=== PATIENT | female | born 1965 | race Caucasian/White ===

== ENCOUNTER 2022-12-30 12:03 | Outpatient (CLI) | payer BC, SELFPAY | END 2022-12-30 12:04 | disposition home or self-care (01) | PROVIDERS: PCP Family Medicine; Visit Provider Family Medicine | DX: R60.9 Edema, unspecified (principal); M25.50 Pain in unspecified joint | CPT/HCPCS: 80048; 84443; 85025; 86039; 86431 ==

== ENCOUNTER 2023-03-15 16:59 | Outpatient (CLI) | payer BC, SELFPAY | END 2023-03-15 17:00 | disposition home or self-care (01) | LOC: FBOREF 17:00 | PROVIDERS: PCP Family Medicine; Visit Provider Family Medicine | DX: R60.9 Edema, unspecified (principal) | CPT/HCPCS: 84132 ==

== ENCOUNTER 2023-08-30 08:39 | Outpatient (CLI) | payer BC, SELFPAY | END 2023-08-30 08:40 | disposition home or self-care (01) | LOC: FBOREF 08:39 | PROVIDERS: PCP Family Medicine; Visit Provider Family Medicine | DX: R53.83 Other fatigue (principal) | CPT/HCPCS: 84443 ==

== ENCOUNTER 2023-09-06 16:48 | Outpatient (CLI) | payer BC, SELFPAY ==
--- NOTE | 2023-09-06 17:00 | US_ITS ---
Patient: ABI BAKER Facility:?[facility] Patient ID:?[id number] Site Patient ID:?[id number]. Site :?[id number] Study:?US-Thyroid -09/06/2023 5:22:45 PM Ordering Physician:KAITY Final Report: INDICATION: autoimmune thyroiditis COMPARISON: none TECHNIQUE: Godoy scale and color Doppler images were acquired of the thyroid gland. FINDINGS: Mildly heterogeneous thyroid echotexture noted. The right lobe measures 5.3 x 1.1 x 1.4 cm and the left lobe measures 5.1 x 1.2 x 1.5 cm in size. There are no suspicious masses or nodules. Isthmus measures 1 millimeter. The color Doppler images demonstrate increased vascularity. There is no evidence of cervical lymphadenopathy or parathyroid mass. IMPRESSION: Mildly heterogeneous thyroid echotexture with diffusely increased vascularity. No suspicious nodule. Dictated by Isai Jiménez MD @ 09/07/2023 8:17:27 AM Signed by:?Isai Jiménez MD @09/07/2023 8:17:27 AM (Electronic Signature)
== END 2023-09-06 16:49 | disposition home or self-care (01) ==
LOC: US 16:49
PROVIDERS: PCP Family Medicine; Visit Provider Otolaryngology
DX: E06.3 Autoimmune thyroiditis (principal)
CPT/HCPCS: 76536

== ENCOUNTER 2023-11-17 09:38 | Outpatient (CLI) | payer BC, SELFPAY | END 2023-11-17 09:39 | disposition home or self-care (01) | PROVIDERS: PCP Family Medicine; Visit Provider Family Medicine | DX: R06.02 Shortness of breath (principal); E03.9 Hypothyroidism, unspecified; E66.9 Obesity, unspecified; R60.9 Edema, unspecified | CPT/HCPCS: 80048; 83880; 85025; 85379 ==

== ENCOUNTER 2023-11-23 13:25 | Outpatient (CLI) | payer BC, SELFPAY ==
--- NOTE | 2023-11-23 13:45 | CRLHL7_ITS ---
For Patients: As a result of the Century Cures Act, medical imaging exams and procedure reports are released immediately into your electronic medical record. You may view this report before your referring provider. If you have questions, please contact your health care provider. INDICATION: Edema TECHNIQUE: : Ultrasound venous duplex lower extremity bilateral. Compression venous exam was performed using philippe-scale, color Doppler, and spectral Doppler imaging. COMPARISON: None FINDINGS: Sonographic imaging demonstrates the common femoral, deep femoral, superficial femoral, popliteal, posterior tibial and greater saphenous veins to be fully compressible with normal color Doppler blood flow in both lower extremities. IMPRESSION: Normal bilateral lower extremity venous ultrasound, no sign of deep venous thrombosis. Dictated by Kalpesh Vogel MD @ 11/24/2023 8:49:40 AM (Electronically Signed)
== END 2023-11-23 13:26 | disposition home or self-care (01) ==
PROVIDERS: PCP Family Medicine; Visit Provider Family Medicine
DX: R60.9 Edema, unspecified (principal); R06.02 Shortness of breath; R79.89 Other specified abnormal findings of blood chemistry
CPT/HCPCS: 93970

== ENCOUNTER 2023-12-08 13:38 | Outpatient (CLI) | payer BC, SELFPAY | END 2023-12-08 13:39 | disposition home or self-care (01) | LOC: RAD 13:39 | PROVIDERS: PCP Family Medicine; Visit Provider Family Medicine | DX: R06.02 Shortness of breath (principal); R06.00 Dyspnea, unspecified | CPT/HCPCS: 93306 ==

== ENCOUNTER 2024-01-11 10:30 | Outpatient (CLI) | payer BC, SELFPAY | END 2024-01-11 10:31 | disposition home or self-care (01) | LOC: NFLDREF 01-15 13:39 | PROVIDERS: PCP Family Medicine; Referring Provider Family Medicine; Visit Provider Family Medicine | DX: E03.9 Hypothyroidism, unspecified (principal) | CPT/HCPCS: 84443 ==

== ENCOUNTER 2024-05-10 10:51 | Outpatient (CLI) | payer BC, SELFPAY | END 2024-05-10 10:52 | disposition home or self-care (01) | PROVIDERS: PCP Family Medicine; Visit Provider Internal Medicine | DX: R53.83 Other fatigue (principal); F41.9 Anxiety disorder, unspecified; R53.1 Weakness | CPT/HCPCS: 80053; 82550; 84443; 87086 ==

== ENCOUNTER 2024-10-10 08:11 | Outpatient (CLI) | payer BC, SELFPAY ==
--- NOTE | 2024-10-10 09:36 | P.ANES_ITS ---
Anesthesia Charges Start Date/Time Anesthesia Start Date: 10/10/24 Anesthesia Start Time: 09:00 Stop Date/Time Anesthesia Stop Date: 10/10/24 Anesthesia Stop Time: 09:31 Coding CPT Codes CPT Codes: ARLINE LWR INTST NDSC NOS - [id number] ([id number]) P2 - PATIENT W/MILD SYST DISEASE, QK - SKEIN TIER 2-4 CNCRNT ANES PROC, QX - SAFETY SUPERVISOR SVC W/ MD MED DIRECTION
--- NOTE | 2024-10-10 09:36 | W.ANESCHARGE ---
Anesthesia Charges Start Date/Time Anesthesia Start Date: 10/10/24 Anesthesia Start Time: 09:00 Stop Date/Time Anesthesia Stop Date: 10/10/24 Anesthesia Stop Time: 09:31 Coding CPT Codes CPT Codes: ARLINE LWR INTST NDSC NOS - [id number] ([id number]) P2 - PATIENT W/MILD SYST DISEASE, QK - MANAGER MATERIAL 2-4 CNCRNT ANES PROC, QX - GRAVE CLEANER SVC W/ MD MED DIRECTION
--- NOTE | 2024-10-10 11:33 | P.ANES_ITS ---
Anesthesia Charges Start Date/Time Anesthesia Start Date: 10/10/24 Anesthesia Start Time: 09:00 Stop Date/Time Anesthesia Stop Date: 10/10/24 Anesthesia Stop Time: 09:31 Coding CPT Codes CPT Codes: ARLINE LWR INTST NDSC NOS - [id number] ([id number]) P2 - PATIENT W/MILD SYST DISEASE, QK - SOCIAL MEDIA DEVELOPER 2-4 CNCRNT ANES PROC, QX - ANALYTICAL DATA SCIENTIST SVC W/ MD MED DIRECTION
--- NOTE | 2024-10-10 11:33 | W.ANESCHARGE ---
Anesthesia Charges Start Date/Time Anesthesia Start Date: 10/10/24 Anesthesia Start Time: 09:00 Stop Date/Time Anesthesia Stop Date: 10/10/24 Anesthesia Stop Time: 09:31 Coding CPT Codes CPT Codes: ARLINE LWR INTST NDSC NOS - [id number] ([id number]) P2 - PATIENT W/MILD SYST DISEASE, QK - SUPERVISOR FRUIT GRADING 2-4 CNCRNT ANES PROC, QX - SLICING MACHINE TENDER SVC W/ MD MED DIRECTION
== END 2024-10-10 08:12 | disposition home or self-care (01) ==
LOC: OP CLINIC 08:11
PROVIDERS: PCP Family Medicine; Visit Provider Surgery
DX: Z12.11 Encounter for screening for malignant neoplasm of colon (principal); D12.1 Benign neoplasm of appendix; Z86.0100 Personal history of colon polyps, unspecified
CPT/HCPCS: 00811; 45385; 88305; J2704

== ENCOUNTER 2024-12-05 10:40 | Outpatient (CLI) | payer BC, SELFPAY ==
[2024-12-05 13:39] LABS: Clue Cells <20% Clue Cells Seen (None Seen); Trichomonas No Trichomonas Seen (None Seen); Yeast No Yeast Seen (None Seen)
== END 2024-12-05 10:41 | disposition home or self-care (01) ==
LOC: FBOREF 11:18
PROVIDERS: PCP Family Medicine; Visit Provider Family Medicine
DX: N89.8 Other specified noninflammatory disorders of vagina (principal)
CPT/HCPCS: 87086; 87210

== ENCOUNTER 2025-01-15 10:36 | Outpatient (CLI) | payer BC, SELFPAY | END 2025-01-15 10:37 | disposition home or self-care (01) | PROVIDERS: PCP Family Medicine; Visit Provider Family Medicine | DX: E03.9 Hypothyroidism, unspecified (principal); R53.83 Other fatigue | CPT/HCPCS: 80048; 84443; 85025 ==

== ENCOUNTER 2025-04-18 10:57 | Outpatient (CLI) | payer BC, SELFPAY | END 2025-04-18 10:58 | disposition home or self-care (01) | LOC: FBOREF 10:58 | PROVIDERS: PCP Family Medicine; Visit Provider Family Medicine | DX: Z13.6 Encounter for screening for cardiovascular disorders (principal) | CPT/HCPCS: 80061 ==

== ENCOUNTER 2025-06-26 10:39 | Outpatient (CLI) | payer BC, SELFPAY ==
[2025-06-26 14:32] LABS: Vitamin D 25 Hydroxy* 34 ng/mL (30-80)
== END 2025-06-26 10:40 | disposition home or self-care (01) ==
LOC: NPINS 10:40
PROVIDERS: PCP Family Medicine; Visit Provider Family Medicine
DX: R79.89 Other specified abnormal findings of blood chemistry (principal)
CPT/HCPCS: 82306